=== PATIENT | male | born 1975 | race Caucasian/White ===

== ENCOUNTER 2022-05-27 08:42 | Emergency (ER) | payer OTHER, SELFPAY ==
--- NOTE | 2022-05-27 08:46 | ED.URI ---
HPI - URI/Sore Throat General Chief Complaint: Upper Respiratory Infection Stated Complaint: Shortness Of Breath/Sore Throat Time Seen by Provider: 05/27/22 08:47 Source: patient and RN notes reviewed History of Present Illness HPI Narrative: Patient is a 47-year-old male who presents to urgent care with complaints of sore throat and cough since . Patient states that he also has some increased shortness of breath. States he does have a history of asthma as a child but has not used an inhaler for some time. Patient denies any fever, nausea, vomiting or ill exposures. States that he has been taking Benadryl at night for the symptoms. No other acute complaints. No acute distress noted. Patient aware of the plan of care. Some parts of this dictation were generated by voice recognition software and may contain typographical and/or grammatical inaccuracies. Related Data Home Medications Medication Instructions Recorded Confirmed atorvastatin 20 mg tablet 20 mg PO DAILY 05/27/22 05/27/22 dulaglutide 1.5 mg/0.5 mL 1.5 mg subcut WEEKLY 05/27/22 05/27/22 subcutaneous pen injector (Trulicity) lisinopril 10 mg tablet 10 mg PO DAILY 05/27/22 05/27/22 metformin 1,000 mg tablet 1,000 mg PO BID 05/27/22 05/27/22 montelukast 10 mg tablet 10 mg PO DAILY 05/27/22 05/27/22 testosterone cypionate 200 mg/mL 200 mg IM DIRECTED 05/27/22 05/27/22 intramuscular oil Allergies Allergy/AdvReac Type Severity Reaction Status Date / Time No Known Allergies Allergy Verified 05/27/22 08:56 Review of Systems Review of Systems: CONSTITUTIONAL: Denies fever, chills, or sweats. EYES: Denies visual changes, redness, or discharge. ENT: Denies rhinorrhea, congestion, otalgia. Reports of sore throat postnasal drainage CARDIOVASCULAR: Denies chest pain, palpitations, or edema. RESPIRATORY: Reports cough with intermittent dyspnea exertion GASTROINTESTINAL: Denies abdominal pain, nausea, vomiting, or diarrhea. GENITOURINARY: Denies dysuria or hematuria. SKIN: Denies rash or itching. MUSCULOSKELETAL: Denies back pain, joint pain, or myalgia. NEUROLOGIC: Denies headache, numbness, or weakness. All other systems reviewed are negative, except as documented in HPI. PMFSH Comments At the time of my signature, I reviewed and agree with the nursing past medical, surgical, social, and family history. There is no relevant family history pertinent to the patient complaint. Exam Narrative: GENERAL: This is a well-nourished, well-developed patient, in no apparent distress. HEAD: normocephalic, atraumatic. EYES: PERRL. Sclera clear/white. Vision is grossly intact. EARS: External ears normal, auditory canals clear and without drainage, bilateral cerumen without impaction. TMs normal without perforation. Hearing grossly intact. NOSE: External nose normal with no obvious nasal discharge, nares without redness, no rhinorrhea. THROAT: Mucous membranes moist, posterior pharynx clear. Moderate postnasal drainage NECK: Neck supple RESPIRATORY: Clear to auscultation. Breath sounds equal bilaterally. No wheezes, rales, or rhonchi. SKIN: warm, intact with no suspicious lesions or rash, good texture and turgor. NEURO: awake, alert, and oriented to person, place and time. There were no obvious focal neurologic abnormalities. EXTREMITIES: No clubbing, cyanosis, or edema. Course Course Level of Care: Express Care Visit Vital Signs Vital signs: Vital Signs Temperature 98.3 F 05/27/22 08:48 Pulse Rate 72 05/27/22 08:48 Respiratory Rate 20 05/27/22 08:48 Blood Pressure 149/77 H 05/27/22 08:48 Pulse Oximetry 100 05/27/22 08:48 Oxygen Delivery Room Air 05/27/22 08:48 Temperature 98.3 F 05/27/22 08:48 Pulse Rate 72 05/27/22 08:48 Respiratory Rate 20 05/27/22 08:48 Blood Pressure 149/77 H 05/27/22 08:48 Pulse Oximetry 100 05/27/22 08:48 Oxygen Delivery Room Air 05/27/22 08:48 Reviewed- Patient is informed that they
[2022-05-27 08:48] VITALS: BP 149/77; PULSE 72; RESP 20; TEMP 36.8; O2SAT 100
== END 2022-05-27 09:31 | disposition home or self-care (01) ==
PROVIDERS: Emergency Provider Nurse Practitioner Family
DX: J00 Acute nasopharyngitis [common cold] (principal); I10 Essential (primary) hypertension; E11.9 Type 2 diabetes mellitus without complications; K21.9 Gastro-esophageal reflux disease without esophagitis
CPT/HCPCS: 87081; 87880; 99213; G0463